=== PATIENT | male | born 1970 | race Caucasian/White ===

== ENCOUNTER 2017-04-11 13:00 | Inpatient (IN) | payer OTHER ==
[~2017-04-11] VITALS: Ht 162.6 cm; Wt 66.7 kg
--- NOTE | ~2017-04-11 | PN ---
Unit #: [id number] #: [id number] Patient: JAZMYN AGUIRRE [id number] [facility] [address] [place] [address] [id number] MR#: [id number] NAME: JAZMYN AGUIRRE ROOM: [facility] Age: 47 Sex: M Admission Date: 04/11/2017 : 1970 Attending Physician: Fritz Tavarez M.D. Admitting Physician: Fritz Tavarez M.D. Primary Care Physician: Generic Doctor Not In System [facility] PROGRESS NOTES DATE 04/13/2017 DISCUSSION When approached today, the patient is noted to be kneeling in his floor and responding to internal stimuli. He states that he is "just talking to himself." His detox continues uneventfully, and his lithium level is therapeutic at 0.7. I will go ahead with an increase in the patient's Seroquel dose to 600 mg at bedtime given ongoing psychosis. Dictated by... Fritz Tavarez M.D. CB/niels TD: 04/14/2017 13:30 JOB #: [id number] [facility] PROGRESS NOTES Page 1 of 1 X Fritz Tavarez MD X PROGRESS NOTE
--- NOTE | ~2017-04-11 | PN ---
Unit #: [id number] #: [id number] Patient: JAZMYN AGUIRRE [id number] [facility] [address] [place] [address] [id number] I MR#: [id number] NAME: JAZMYN AGUIRRE ROOM: 31 Age: 47 Sex: M Admission Date: 04/11/2017 : 1970 Attending Physician: Fritz Tavarez M.D. Admitting Physician: Fritz Tavarez M.D. Primary Care Physician: Generic Doctor Not In System [facility] PROGRESS NOTES DATE 04/17/2017 DISCUSSION The patient continues to complain of auditory hallucinations but reports no suicidal or homicidal ideation nor does he report that the hallucinations while egodystonic or command in type. I have redirected the patient's expectations regarding inpatient care, and I have informed him that we are a maximum dose of Seroquel. I do not plan to increase further. Accordingly, it is likely that discharge will take place tomorrow barring any unforeseen developments. Dictated by... Fritz aTvarez M.D. CB/niels TD: 04/17/2017 14:18 JOB #: [id number] [facility] PROGRESS NOTES Page 1 of 1 X Fritz Tavarez MD PROGRESS NOTE
--- NOTE | ~2017-04-11 | PN ---
Unit #: [id number] #: [id number] Patient: JAZMYN AGUIRRE [id number] [facility] [address] [place] [address] [id number] I MR#: [id number] NAME: JAZMYN AGUIRRE ROOM: 31 Age: 47 Sex: M Admission Date: 04/11/2017 : 1970 Attending Physician: Fritz Tavarez M.D. Admitting Physician: Fritz Tavarez M.D. Primary Care Physician: Generic Doctor Not In System [facility] PROGRESS NOTES DATE 04/15/2017 DISCUSSION The patient remains seclusive to room with little participation within the therapeutic milieu. We have increased his Seroquel given his psychotic symptoms noted yesterday. The staff reports little management issues but states that the patient's participation within the therapeutic milieu has been poor. Dictated by... Fritz Tavarez M.D. CB/jessica TD: 04/15/2017 23:11 JOB #: [id number] [facility] PROGRESS NOTES Page 1 of 1 X Fritz Tavarez MD X PROGRESS NOTE
--- NOTE | ~2017-04-11 | PA ---
Unit #: [id number] #: [id number] Patient: JAZMYN AGUIRRE [id number] [place] [address] [id number] I MR#: [id number] NAME: JAZMYN AGUIRRE ROOM: [facility] Age: 47 Sex: M Admission Date: 04/11/2017 : 1970 Date of Assessment: 04/12/2017 Attending Physician: Fritz Tavarez M.D. Admitting Physician: Fritz Tavarez M.D. Primary Care Physician: Generic Doctor Not In System PSYCHIATRIC ASSESSMENT IDENTIFYING INFORMATION The patient is a 47-year-old white male admitted to the [address] [place] [address] Unit after a period of medication noncompliance as well as abuse of alcohol. CHIEF COMPLAINT None given. INFORMANT(S) Patient and chart, reliability good. HISTORY OF PRESENT ILLNESS The patient is a 47-year-old white male admitted after he had stopped his medications for some time. The patient reports that he has also been drinking heavily. The patient is admitted in transfer from [facility] where he had presented voicing positive suicidal ideation and auditory hallucinations. His alcohol on admission at that facility was interestingly negative. When seen today, the patient admits to his period of medication noncompliance. He was last hospitalized at this facility in 2011 per report of the chart. PAST PSYCHIATRIC HISTORY The patient's current psychotropic medications include Seroquel, lithium, and Zoloft. It is unclear who is providing these medications, however. PAST MEDICAL HISTORY Significant for history of hypertension. MEDICATIONS Seroquel, lithium, atenolol, Zoloft. ALLERGIES Penicillin. FAMILY HISTORY Noncontributory. SOCIAL HISTORY The patient reports that he is homeless. He reports heavy alcohol use but does not quantify though his alcohol was negative on admission. MENTAL STATUS EXAMINATION Examination at this time reveals the patient to be a well-developed well-nourished white male appearing stated age. She is in no apparent Unit #: [id number] #: [id number] Patient: JAZMYN AGUIRRE physical distress at the time of examination. He is awake, alert, and oriented in all spheres. His mood is mildly dysphoric, his affect constricted. Speech is generally well-coherent. There are no gross deficits in memory or cognition noted. Intelligence is judged to be in the average range based on fund of knowledge. The patient is cooperative throughout the interview. He is currently reporting positive suicidal ideation and auditory hallucinations. His judgment and insight appear to be somewhat impaired. ASSETS AND LIABILITIES The patient's assets are to be assessed. Liabilities: Lack of resources. DIAGNOSTIC IMPRESSION 1. Schizoaffective disorder. 2. Alcohol use disorder. 3. Hypertension. TREATMENT PLAN The patient remains hospitalized for safety and stabilization. We will restart previously prescribed medications. Routine detoxification protocol has been initiated. ESTIMATED LENGTH OF STAY 5 to 7 days Dictated by... Fritz Tavarez M.D. Jose Manuel TD: 04/12/2017 15:17 JOB #: [id number] PSYCHIATRIC ASSESSMENT Page 1 of 1 X Fritz Tavarez MD X PSYCHIATRIC ASSESSMENT
--- NOTE | ~2017-04-11 | PN ---
Unit #: [id number] #: [id number] Patient: JAZMYN AGUIRRE [id number] [facility] [address] [place] [address] [id number] I MR#: [id number] NAME: JAZMYN AGUIRRE ROOM: [facility] Age: 47 Sex: M Admission Date: 04/11/2017 : 1970 Attending Physician: Fritz Tavarez M.D. Admitting Physician: Frizt Tavarez M.D. Primary Care Physician: Generic Doctor Not In System [facility] PROGRESS NOTES DATE 04/15/2017 DISCUSSION The patient is once again found by this physician to be loudly responding to internal stimuli on initiation of interview today. His detox is essentially complete and we will discontinue his detoxification protocol and medications. I will go ahead and increase his Seroquel to 200 mg in the morning and 800 at h.s. given his complaints of ongoing auditory hallucinations which appear to be significantly ego dystonic to the patient. Dictated by... Fritz Tavarez M.D. CB/jessica TD: 04/16/2017 21:50 JOB #: [id number] [facility] PROGRESS NOTES Page 1 of 1 X Fritz Tavarez MD PROGRESS NOTE
--- NOTE | ~2017-04-11 | HP ---
Unit #: [id number] #: [id number] Patient: JAZMYN AGUIRRE [id number] [place] [address] [id number] I MR#: [id number] NAME: JAZMYN AGUIRRE ROOM: P131 Age: 47 Sex: M Admission Date: 04/11/2017 : 1970 Attending Physician: Fritz Tavarez M.D. Admitting Physician: Fritz Tavarez M.D. Primary Care Physician: Generic Doctor Not In System HISTORY AND PHYSICAL HISTORY OF PRESENT ILLNESS Jazmyn is a 47 year old admitted to [address] [place] [address] with psychotic behavior. He reports auditory hallucinations. He has had other admissions to this facility. PAST MEDICAL HISTORY Obesity. PAST SURGICAL HISTORY 1. Jaw surgery. 2. Inguinal hernia repair. ALLERGIES No known drug allergies. SOCIAL HISTORY He denies cigarettes, alcohol and illicit drug use. FAMILY HISTORY Medically noncontributory. REVIEW OF SYSTEMS CONSTITUTIONAL: No fever or chills. HEENT: Denies any sore throat, ear pain or runny nose. CARDIOVASCULAR: Denies chest pain, irregular heart rhythm or palpitations. CHEST: Denies shortness of breath or cough. No hemoptysis. GASTROINTESTINAL: Denies nausea, vomiting, diarrhea or chronic constipation. ENDOCRINE: Denies history of increased thirst or urination. No recent significant weight loss or gain. GENITOURINARY: Denies dysuria, frequency, or hematuria. SKIN: Denies any rashes. HEMATOLOGIC: Denies history of increased bleeding or bruising. MUSCULOSKELETAL: Denies any hot, swollen joints. No generalized muscle pain. NEUROLOGIC: Denies problems with vision or speech. No frequent, severe headaches. No numbness, tingling or weakness in any extremities. Denies loss of bladder or bowel control. CURRENT MEDICATIONS 1. Detox protocol 2. Tenormin 25 mg q day Unit #: [id number] #: [id number] Patient: JAZMYN AGUIRRE 3. Seroquel 400 mg q.h.s. 4. Pearl 300 mg b.i.d. 5. Zyprexa Zydis 10 mg q.8 hours p.r.n. PHYSICAL EXAMINATION GENERAL: Alert, obese, in no apparent distress. VITAL SIGNS: Blood pressure 136/94, heart rate 80, respirations 16, temperature 98.6. WEIGHT: 147 pounds. HEIGHT: 5'4". SKIN: Warm and dry without rash or lesion. HEENT: Normocephalic. TMs not viewed. Oral and nasal passages clear. Conjunctivae clear. Pupils equal, round and reactive to light and accommodation. Extraocular movements intact. NECK: Supple without lymphadenopathy or thyromegaly. HEART: Regular rate and rhythm without murmur. LUNGS: Clear. ABDOMEN: Soft, nontender. : Not done. EXTREMITIES: No evidence of cyanosis, clubbing or edema. Moves all extremities without focal deficit. NEUROLOGICAL: Grossly within normal limits. Cranial Nerves: II: Visual vann are intact. III, IV AND : Extraocular movements are intact. Pupils are equal, round and reactive to light. V: Facial sensation is grossly normal. VII: Facial movements and expression are normal. VIII: Auditory acuity grossly intact. IX, X: Uvula is midline. Phonation is normal. XI: Patient shrugs shoulders and turns head normally. XII: Tongue protrudes in the midline. Sensory and Motor Function: Sensory and motor sensation is grossly normal. Motor: moves all extremities well. Coordination: Gait is normal. Deep Tendon Reflexes: Intact. IMPRESSION Psychiatric admission RECOMMENDATIONS PSYCHIATRIC: Per psychiatrist. MEDICAL: I see no contraindications to participating in facility's activities. MEDICAL PROGNOSIS Good. MEDICAL CONDITION Stable. Dictated by... Soraya HolderADanika. for Davi Zelaya/jessica Unit #: [id number] #: [id number] Patient: JAZMYN AGUIRRE TD: 04/12/2017 20:35 JOB #: [id number] HISTORY AND PHYSICAL Page 1 of 1 X Christine Sánchez HISTORY AND PHYSICAL
--- NOTE | ~2017-04-11 | DS ---
Unit #: [id number] #: [id number] Patient: JAZMYN AGUIRRE [id number] [facility] [place] [address] [id number] I MR#: [id number] NAME: JAZMYN AGUIRRE ROOM: [facility] Age: 47 Sex: M Admission Date: 04/11/2017 : 1970 Discharge Date: 04/19/2017 Attending Physician: Fritz Tavarez M.D. DISCHARGE SUMMARY REASON FOR ADMISSION The patient is a 47-year-old white male, admitted with increasing alcohol use and auditory hallucinations. HOSPITAL COURSE The patient was admitted to the [address] [place] [address] unit and placed on suicide precautions. He was placed on routine detoxification protocol for alcohol and was continued on previously prescribed medications. Seroquel was eventually titrated to a final dose of 200 mg q.a.m. and 600 mg at h.s. The patient continued to respond to internal stimuli as his hospital stay progressed. His detoxification was an uneventful one. By 04/19/2017, the patient was agreeable with plan for discharge with followup will take place through the [facility] and chemical dependency treatment resources in the [facility]. Discharge was ordered. FINAL DIAGNOSES Schizoaffective disorder; alcohol use disorder. DISPOSITION ON DISCHARGE The patient is discharged on the following medications: [place] carbonate 300 mg b.i.d. for mood stabilization; Seroquel 200 mg 1:00 a.m. and 300 at h.s. for psychosis; Zoloft 200 mg daily for depression; and Tenormin 25 mg once daily for hypertension. DISCHARGE INSTRUCTIONS No dietary or physical restrictions were placed on the patient at the time of discharge. FOLLOWUP Followup will take place through the [facility] and chemical dependency treatment [facility]. PROGNOSIS The patient's prognosis is considered fair. Dictated by... Fritz Tavarez M.D. CB/amarilis TD: 04/19/2017 16:27 Unit #: [id number] #: [id number] Patient: JAZMYN AGUIRRE JOB #: [id number] DISCHARGE SUMMARY Page 1 of 1 X Fritz Tavarez MD X DISCHARGE SUMMARY
--- NOTE | ~2017-04-11 | PN ---
Unit #: [id number] #: [id number] Patient: JAZMYN AGUIRRE [id number] [facility] [address] [place] [address] [id number] I MR#: [id number] NAME: JAZMYN AGUIRRE ROOM: 31 Age: 47 Sex: M Admission Date: 04/11/2017 : 1970 Attending Physician: Fritz Tavarez M.D. Admitting Physician: Fritz Tavarez M.D. Primary Care Physician: Generic Doctor Not In System [facility] PROGRESS NOTES DATE 04/13/2017 DISCUSSION The patient remains abed. He continues to complain of auditory hallucinations but exhibits little in the way of signs or symptoms of withdrawal. His mood remains dysphoric and hopeless. Dictated by... Fritz Tavarez M.D. CB/bzg TD: 04/13/2017 15:05 JOB #: [id number] [facility] PROGRESS NOTES Page 1 of 1 X Fritz Tavarez MD X PROGRESS NOTE
[~2017-04-11 13:00] MED LIST: SEROQUEL PO
[2017-04-12 12:32] LABS: BASOPHIL# 0.1 X10e3 (0-0.3); BASOPHIL% 0.9 % (0-2.5); EOSINOPHIL# 0.4 X10e3 (0-0.7); EOSINOPHIL% 6.8 % (0.0-7.0); HEMATOCRIT 42.9 % (38.0-50.0); HEMOGLOBIN 14.6 gm/dL (13.0-16.0); LYMPHOCYTE# 1.3 X10e3 (1.0-3.5); LYMPHOCYTE% 21.9 % (17.0-45.0); MEAN CELL VOLUME 89.3 FL (83-96); MEAN CORPUSCULAR HEMOGLOBIN 30.4 PG (28-34); MEAN CORPUSCULAR HGB CONC 34.1 g/dL (30-36); MEAN PLATELET VOLUME 8.8 FL (6.5-11.5); MONOCYTE# 0.6 X10e3 (0-1.0); MONOCYTE% 10.5 % (3.0-12.0); NEUTROPHIL# 3.5 X10e3 (1.5-7.1); NEUTROPHIL% 59.9 % (40-75); PLATELET COUNT 240 X10e3 (140-420); RED CELL DISTRIBUTION WIDTH 13.2 % (11.0-15.5); WHITE BLOOD COUNT 5.8 X10e3 (4.0-10.5)
[2017-04-12 12:40] LABS: DIFF IND NO
[2017-04-12 12:49] LABS: ALBUMIN SERUM 4.4 g/dL (3.5-5.0); BILIRUBIN,TOTAL 1.7 mg/dL (0.2-2.0); CALCIUM SERUM 9.5 mg/dL (8.4-10.2); GLOM FILT RATE Estimated 88.6 mL/min (>60); POTASSIUM 4.1 mmol/L (3.5-5.1); PROTEIN TOTAL SERUM 7.2 g/dL (6.0-8.3)
== END 2017-04-19 20:24 | disposition home or self-care (01) | DRG 897 ==
LOC: P1S 17:36
PROVIDERS: Specialist
PROC: HZ2ZZZZ Detoxification Services for Substance Abuse Treatment (ICD-10-PCS; principal; 2017-04-12)
DX: F10.10 Alcohol abuse, uncomplicated (principal); F25.9 Schizoaffective disorder, unspecified; I10 Essential (primary) hypertension; E66.9 Obesity, unspecified; Z68.25 Body mass index [BMI] 25.0-25.9, adult
CPT/HCPCS: 80053; 80178; 85025; 86592